=== PATIENT | female | born 1950 | race Caucasian/White ===

== ENCOUNTER → 2019-09-03 11:48 | Outpatient (CLI) | payer OTHER, SELFPAY ==
[2019-09-03 13:32] LABS: Hemoglobin A1C% w Est Avg Glu 7.7 % (4.0-6.0)
[2019-09-03 14:13] LABS: BUN Creatinine Ratio 20.6 (6-22); Blood Urea Nitrogen 13 mg/dL (7-17); Carbon Dioxide 24 mmol/L (22-32); Chloride 102 mmol/L (98-107); Estimated Glomerular Filt Rate > 60.0 mL/min (>60); Glucose 181 mg/dL (80-110); HEMOLYSIS < 15 (0-50); Potassium 4.5 mmol/L (3.4-5.1); Sodium 138 mmol/L (137-145)
[2019-09-03 15:02] LABS: Vitamin B12 276 pg/mL (239-931)
[2019-09-03 16:35] LABS: Vitamin D 25 Hydroxy (D3) 33.2 ng/mL (30.0-100.0)
[2019-09-03 16:59] LABS: Microalbumi Creatinin Ratio Ur 10.6 ug/mg CR (<30); Microalbumin Urine Random 1.2 mg/dL (0-1.6)
== END ==
PROVIDERS: Family Provider Internal Medicine; PCP Student in an Organized Health Care Education/Training Program; Referring Provider Student in an Organized Health Care Education/Training Program; Visit Provider Student in an Organized Health Care Education/Training Program
DX: E11.69 Type 2 diabetes mellitus with other specified complication (principal); E55.9 Vitamin D deficiency, unspecified; E66.9 Obesity, unspecified; G62.9 Polyneuropathy, unspecified
CPT/HCPCS: 36415; 80048; 82043; 82306; 82570; 82607; 83036

== ENCOUNTER → 2019-12-28 13:41 | Outpatient (CLI) | payer OTHER, SELFPAY ==
[2019-12-28 14:28] LABS: Hemoglobin A1C% w Est Avg Glu 7.1 % (4.0-6.0)
== END ==
PROVIDERS: Family Provider Internal Medicine; PCP Student in an Organized Health Care Education/Training Program; Referring Provider Student in an Organized Health Care Education/Training Program; Visit Provider Student in an Organized Health Care Education/Training Program
DX: Z13.820 Encounter for screening for osteoporosis (principal); M85.852 Other specified disorders of bone density and structure, left thigh; Z78.0 Asymptomatic menopausal state; E11.9 Type 2 diabetes mellitus without complications; Z91.89 Other specified personal risk factors, not elsewhere classified
CPT/HCPCS: 36415; 77080; 83036

== ENCOUNTER → 2020-04-06 15:15 | Outpatient (CLI) | payer OTHER, SELFPAY ==
[2020-04-06 16:21] LABS: Hemoglobin A1C% w Est Avg Glu 6.9 % (4.0-6.0)
== END ==
PROVIDERS: Family Provider Internal Medicine; PCP Student in an Organized Health Care Education/Training Program; Referring Provider Student in an Organized Health Care Education/Training Program; Visit Provider Student in an Organized Health Care Education/Training Program
DX: E11.9 Type 2 diabetes mellitus without complications (principal)
CPT/HCPCS: 36415; 83036

== ENCOUNTER → 2020-09-21 11:01 | Outpatient (CLI) | payer OTHER, SELFPAY ==
[2020-09-21 12:17] LABS: Hemoglobin A1C% w Est Avg Glu 7.1 % (4.0-6.0)
[2020-09-21 12:21] LABS: BUN Creatinine Ratio 31.7 (6-22); Blood Urea Nitrogen 19 mg/dL (7-17); Calcium 9.4 mg/dL (8.4-10.2); Carbon Dioxide 27 mmol/L (22-32); Chloride 102 mmol/L (98-107); Estimated Glomerular Filt Rate > 60.0 mL/min (>60); Glucose 141 mg/dL (80-110); HEMOLYSIS 16 (0-50); Potassium 4.2 mmol/L (3.4-5.1); Sodium 137 mmol/L (137-145)
[2020-09-21 16:21] LABS: Creatinine Urine Random 103.9 mg/dL
[2020-09-21 16:35] LABS: Microalbumin Urine Random < 0.6 mg/dL (0-1.6)
== END ==
PROVIDERS: Family Provider Internal Medicine; PCP Student in an Organized Health Care Education/Training Program; Referring Provider Student in an Organized Health Care Education/Training Program; Visit Provider Student in an Organized Health Care Education/Training Program
DX: E11.9 Type 2 diabetes mellitus without complications (principal); I10 Essential (primary) hypertension
CPT/HCPCS: 36415; 80048; 82043; 82570; 83036

== ENCOUNTER → 2021-04-03 15:40 | Outpatient (CLI) | payer OTHER, SELFPAY ==
[2021-04-03 16:19] LABS: Hemoglobin A1C% w Est Avg Glu 7.2 % (4.0-6.0)
== END ==
PROVIDERS: Family Provider Internal Medicine; PCP Student in an Organized Health Care Education/Training Program; Referring Provider Student in an Organized Health Care Education/Training Program; Visit Provider Student in an Organized Health Care Education/Training Program
DX: E11.9 Type 2 diabetes mellitus without complications (principal)
CPT/HCPCS: 36415; 83036

== ENCOUNTER → 2021-10-19 12:23 | Outpatient (CLI) | payer OTHER, SELFPAY ==
[2021-10-19 13:30] LABS: Hemoglobin A1C% w Est Avg Glu 8.5 % (4.0-6.0)
[2021-10-19 13:51] LABS: Blood Urea Nitrogen 16 mg/dL (7-17); Carbon Dioxide 27 mmol/L (22-32); Chloride 102 mmol/L (98-107); Cholesterol 160 mg/dL (140-199); Estimated Glomerular Filt Rate > 60 mL/min (>60); Glucose 214 mg/dL (80-110); HDL Cholesterol 47 mg/dL (40-60); LDL Cholesterol Calculated 47 mg/dL (<100); Potassium 5.1 mmol/L (3.4-5.1); Sodium 136 mmol/L (137-145); Triglycerides 332 mg/dL (35-150)
[2021-10-19 13:52] LABS: HEMOLYSIS 57 (0-50)
[2021-10-19 15:21] LABS: Creatinine Urine Random 126.1 mg/dL
[2021-10-19 15:28] LABS: Microalbumi Creatinin Ratio Ur 5.5 ug/mg CR (<30); Microalbumin Urine Random 0.7 mg/dL (0-1.6)
== END ==
PROVIDERS: Family Provider Internal Medicine; PCP Student in an Organized Health Care Education/Training Program; Referring Provider Student in an Organized Health Care Education/Training Program; Visit Provider Student in an Organized Health Care Education/Training Program
DX: E11.9 Type 2 diabetes mellitus without complications (principal); E11.69 Type 2 diabetes mellitus with other specified complication; E78.5 Hyperlipidemia, unspecified; I10 Essential (primary) hypertension
CPT/HCPCS: 36415; 80048; 80061; 82043; 82570; 83036

== ENCOUNTER → 2022-01-15 14:41 | Outpatient (CLI) | payer OTHER, SELFPAY ==
--- NOTE | 2022-01-15 14:42 | DI.MG.S_ITS ---
BILATERAL DIGITAL SCREENING MAMMOGRAM 3D/2D WITH CAD: 01/15/2022 CLINICAL: Routine screening. Comparison is made to exams dated: 08/11/2020 mammogram, 10/10/2017 mammogram, 10/10/2016 mammogram - [facility], and 09/22/2015 mammogram - [facility]. There are scattered fibroglandular elements in both breasts. Current study was also evaluated with a Computer Aided Detection (CAD) system. No significant masses, calcifications, or other findings are seen in either breast. There has been no significant interval change. IMPRESSION: NEGATIVE There is no mammographic evidence of malignancy. A 1 year screening mammogram is recommended. Based on the Tyrer Cuzick model (a risk assessment model) the patient's lifetime risk is 2.9% and her 10 year risk is 2.3%. According to the ACR, ACS, and NCCN guidelines, an annual breast MRI exam along with mammogram is recommended if the patient's lifetime risk is 20% or greater. This exam was interpreted at Station ID: [id number]. NOTE: For mammograms, a report in lay terms will be sent to the patient. Approximately 15% of breast malignancies will not be visualized mammographically. In the management of a palpable breast mass, a negative mammogram must not discourage biopsy of a clinically suspicious lesion. Electronically Signed By: Erlin [email or web address]:01/15/2022 17:24:20 letter sent: Normal Exam ACR BI-RADS Category 1: Negative [id number]
[2022-01-15 15:23] LABS: Hemoglobin A1C% w Est Avg Glu 8.2 % (4.0-6.0)
[2022-01-15 15:44] LABS: Triglycerides 360 mg/dL (35-150)
== END ==
PROVIDERS: Family Provider Internal Medicine; PCP Student in an Organized Health Care Education/Training Program; Referring Provider Student in an Organized Health Care Education/Training Program; Visit Provider Student in an Organized Health Care Education/Training Program
DX: Z12.31 Encounter for screening mammogram for malignant neoplasm of breast (principal); M85.852 Other specified disorders of bone density and structure, left thigh; Z78.0 Asymptomatic menopausal state; E11.69 Type 2 diabetes mellitus with other specified complication; Z13.820 Encounter for screening for osteoporosis; E78.5 Hyperlipidemia, unspecified; Z92.23 Personal history of estrogen therapy; Z90.710 Acquired absence of both cervix and uterus; Z85.828 Personal history of other malignant neoplasm of skin
CPT/HCPCS: 36415; 77063; 77067; 77080; 83036; 84478

== ENCOUNTER → 2022-09-19 09:46 | Outpatient (CLI) | payer OTHER, SELFPAY ==
[2022-09-19 10:29] LABS: Add Manual Diff / Slide Review NO; Basophils Absolute Auto 0 /uL (0-100); Basophils Percent Auto 0.5 % (0-2); Eosinophils Absolute Auto 300 /uL (0-450); Eosinophils Percent Auto 4.2 % (2-4); Hematocrit 39.9 % (36-46); Hemoglobin 13.2 g/dL (12.0-16.0); Lymphocytes Absolute Auto 2200 /uL (1100-4500); Lymphocytes Percent Auto 31.8 % (25-40); Mean Corpuscular HGB Conc 33.2 % (30-36); Mean Corpuscular Hemoglobin 29.3 PG (26-34); Mean Corpuscular Volume 88.3 fL (80-100); Monocytes Absolute Auto 500 /uL (0-900); Monocytes Percent Auto 7.6 % (3-14); Neutrophils Absolute Auto 3900 /uL (1500-7000); Neutrophils Percent Auto 55.9 % (50-75); Platelet Count 286 X10^3/uL (150-400); Red Blood Cell Count 4.51 X10^6/uL (4.0-5.2); Red Cell Distribution Width 14.3 % (11.6-14.8); White Blood Cell Count 6.9 X10^3/uL (4.5-11.0)
[2022-09-19 10:55] LABS: Appearance Urine UA SL CLOUDY; Bilirubin Urine UA NEGATIVE (NEGATIVE); Color Urine UA YELLOW; Glucose Urine UA NEGATIVE (Negative); Ketones Urine UA NEGATIVE (NEGATIVE); Leukocyte Esterase Urine UA TRACE (NEGATIVE); Nitrite Urine UA NEGATIVE (Negative); Occult Blood Urine UA NEGATIVE (Negative); Protein Urine UA NEGATIVE (Negative); Specific Gravity Urine UA 1.025 (1.000-1.035); Urobilinogen Urine UA 0.2 E.U./dL (0.2)
[2022-09-19 10:56] LABS: pH Urine UA 5.5 (4.5-8.0)
[2022-09-19 11:03] LABS: BUN Creatinine Ratio 21.9 (6-22); Blood Urea Nitrogen 16 mg/dL (7-17); Calcium 8.8 mg/dL (8.4-10.2); Carbon Dioxide 28 mmol/L (22-32); Chloride 102 mmol/L (98-107); Estimated Glomerular Filt Rate > 60 mL/min (>60); Glucose 100 mg/dL (80-110); HEMOLYSIS 44 (0-50); Potassium 4.1 mmol/L (3.4-5.1); Sodium 137 mmol/L (137-145)
[2022-09-19 11:15] LABS: Bacteria Urine None Seen; Culture Indicated Urine Specimen Cultured; RBC Urine None Seen (0-5/HPF); Squamous Epithelial Cell Urine 1-5 /HPF (0-5/HPF); WBC Urine 1-5/HPF (0-5/HPF)
== END ==
PROVIDERS: Family Provider Internal Medicine; PCP Student in an Organized Health Care Education/Training Program; Referring Provider Orthopaedic Surgery; Visit Provider Orthopaedic Surgery
DX: Z01.818 Encounter for other preprocedural examination (principal); R73.9 Hyperglycemia, unspecified; Z01.812 Encounter for preprocedural laboratory examination; N39.0 Urinary tract infection, site not specified
CPT/HCPCS: 36415; 80048; 81001; 83036; 85025; 87086; 93005

== ENCOUNTER → 2023-02-01 10:22 | Outpatient (CLI) | payer OTHER, SELFPAY ==
[2023-02-01 11:37] LABS: BUN Creatinine Ratio 37.3 (6-22); Blood Urea Nitrogen 22 mg/dL (7-17); Calcium 9.3 mg/dL (8.4-10.2); Carbon Dioxide 31 mmol/L (22-32); Chloride 98 mmol/L (98-107); Cholesterol 162 mg/dL (140-199); Estimated Glomerular Filt Rate > 60 mL/min (>60); Glucose 117 mg/dL (80-110); HDL Cholesterol 48 mg/dL (40-60); HEMOLYSIS < 15 (0-50); LDL Cholesterol Calculated 74 mg/dL (<100); Potassium 4.1 mmol/L (3.4-5.1); Sodium 137 mmol/L (137-145); Triglycerides 202 mg/dL (35-150)
[2023-02-01 11:43] LABS: Creatinine Urine Random 105.7 mg/dL
[2023-02-01 11:48] LABS: Microalbumi Creatinin Ratio Ur 5.6 ug/mg CR (<30); Microalbumin Urine Random 0.6 mg/dL (0-1.6)
[2023-02-01 12:32] LABS: Hep C Virus Ab w/Reflex Quant NEGATIVE s/c (NEGATIVE)
[2023-02-02 04:12] LABS: Labcorp Hemoglobin (Hb) A1c 6.4 % (4.8-5.6)
== END ==
PROVIDERS: Family Provider Internal Medicine; PCP Student in an Organized Health Care Education/Training Program; Referring Provider Student in an Organized Health Care Education/Training Program; Visit Provider Student in an Organized Health Care Education/Training Program
DX: E11.9 Type 2 diabetes mellitus without complications; E11.69 Type 2 diabetes mellitus with other specified complication; E78.5 Hyperlipidemia, unspecified; I10 Essential (primary) hypertension; Z11.59 Encounter for screening for other viral diseases
CPT/HCPCS: 36415; 80048; 80061; 82043; 82570; 83036; 86803

== ENCOUNTER → 2023-06-04 15:29 | Outpatient (CLI) | payer OTHER, SELFPAY ==
[2023-06-04 17:04] LABS: Hemoglobin A1C% w Est Avg Glu 6.9 % (4.0-6.0)
[2023-06-04 17:13] LABS: BUN Creatinine Ratio 37.7 (6-22); Blood Urea Nitrogen 23 mg/dL (7-17); Calcium 9.6 mg/dL (8.4-10.2); Carbon Dioxide 27 mmol/L (22-32); Chloride 101 mmol/L (98-107); Estimated Glomerular Filt Rate > 60 mL/min (>60); Glucose 108 mg/dL (80-110); Potassium 4.4 mmol/L (3.4-5.1); Sodium 137 mmol/L (137-145)
[2023-06-04 17:14] LABS: HEMOLYSIS 75 (0-50)
== END ==
PROVIDERS: Family Provider Internal Medicine; PCP Internal Medicine; Referring Provider Internal Medicine; Visit Provider Internal Medicine
DX: E11.69 Type 2 diabetes mellitus with other specified complication (principal); E78.5 Hyperlipidemia, unspecified; I10 Essential (primary) hypertension
CPT/HCPCS: 36415; 80048; 83036

== ENCOUNTER → 2023-07-03 13:50 | Outpatient (CLI) | payer OTHER, SELFPAY | LOC: CAR 13:59 | PROVIDERS: Family Provider Internal Medicine; PCP Internal Medicine; Referring Provider Internal Medicine; Visit Provider Internal Medicine | DX: I48.91 Unspecified atrial fibrillation (principal) | CPT/HCPCS: 93246 ==

== ENCOUNTER → 2023-12-24 14:57 | Outpatient (CLI) | payer OTHER, SELFPAY ==
--- NOTE | 2023-12-24 14:58 | DI.ECHO.S_ITS ---
[facility] +---------+ [facility] : : [address] : : [place] : : [id number] : : Phone: [phone] Echocardiogram Report + + :Name: SALOME MAYEN Study Date: 12/24/2023 Height: 63 in : :[facility] ReadingLocation: Weight: 220 lb : : Gender: Female BSA: 2.0 m2 : :: 1950 Age: 73 yrs BP: 155/82 mmHg: :Reason For Study: ATRIAL FIBRILLATION : :Ordering Physician: PERLA, : :STEFAN Performed By: Riki Rojas : :Referring: STEFAN DUNCAN : + + Interpretation Summary The patient was in sinus rhythm with heart rates between 63-73 bpm during the exam. The study quality was technically difficult. The ejection fraction is estimated to be 60-65%. Diastolic function could not be accurately assessed due to contradictory data. The right ventricle is normal in size and function. No obvious valvular abnormalities. Pulmonary artery pressures cannot be estimated because of the lack of a measurable TR jet velocity but the IVC suggests a CVP of around 3 mmHg. Procedure: A two-dimensional transthoracic echocardiogram with color flow and Doppler was performed. The study quality was technically difficult. There is no prior echocardiogram noted for this patient. The patient was in sinus rhythm with heart rates between 63-73 bpm during the exam. Left Ventricle: The left ventricle is normal in size. The ejection fraction is estimated to be 60-65%. Diastolic function could not be accurately assessed due to contradictory data. Right Ventricle: The right ventricle is normal in size and function. Atria: The left atrium grossly appears normal in size. Right atrial size is normal. The interatrial septum grossly appears intact with no obvious evidence for an atrial septal defect. Mitral Valve: The mitral valve is normal. There is no mitral valve stenosis. There is trace mitral regurgitation. Aortic Valve: The aortic valve is not well visualized. The aortic valve opens well. There is no aortic valve stenosis. No aortic regurgitation is present. Tricuspid Valve: The tricuspid valve is not well visualized, but is grossly normal. There is no tricuspid stenosis. No tricuspid regurgitation. Pulmonary artery pressures cannot be estimated because of the lack of a measurable TR jet velocity but the IVC suggests a CVP of around 3 mmHg. Pulmonic Valve: The pulmonic valve is not well visualized. There is no pulmonic valvular stenosis. There is no pulmonic valvular regurgitation. Great Vessels: The aortic root is normal size. The dimensions of the ascending aorta are normal. The IVC is of normal diameter and collapses greater than 50% with a sniff. This suggests a low right atrial pressure of 3 mm Hg. Pericardium/ Pleura There is no pericardial effusion. There is no pleural effusion. MMode/2D Measurements & Calculations LVIDd: 4.2 cm LVOT diam: 2.0 cm LVIDs: 3.1 cm Ao root diam: 3.0 cm FS: 25.5 % asc Aorta Diam: 3.2 cm IVSd: 1.3 cm Ao Arch Diam (Prox Trans): 2.8 cm LVPWd: 0.96 cm LV gu. diameter/BSA (cm/m^2): 2.1 LV sys. diameter/BSA (cm/m^2): 1.6 LA A4 area: 21.6 cm2 RA long axis: 3.9 cm LA length (vol): 5.5 cm RA area: 12.9 cm2 RA vol: 36.2 ml RA : 18.0 ml/m2 IVC diam: 1.7 cm RVD1 (basal): 3.6 cm RVD2 (mid): 2.7 cm TAPSE: 2.7 cm Doppler Measurements & Calculations Ao V2 max: 176.7 cm/sec LVOT Max Alan: 101.4 cm/sec Ao V2 mean: 127.0 cm/sec LV V1 max P.1 mmHg Ao max P.5 mmHg LV V1 VTI: 26.2 cm Ao mean P.1 mmHg GERMAINE(I,D): 2.1 cm2 Ao V2 VTI: 38.7 cm GERMAINE(V,D): 1.8 cm2 sev ratio: 0.68 GERMAINE indexed to BSA (cm^2/m^2): 1.1 MV E max alan: 75.1 cm/sec PA V2 max: 82.2 cm/sec MV A max alan: 83.9 cm/sec PA V2 mean: 65.1 cm/sec MV E/A: 0.89 PA mean P.8 mmHg Med Peak E' Alan: 6.7 cm/sec PA pr(Accel): 46.5 mmHg E/E' med: 11.2 Lat Peak E' Alan: 10.0 cm/sec E/E' lat: 7.5 E/e' average: 9.3 MV dec time: 0.20 sec SV(LVOT): 83.1 ml Reading Physician:04:02 PM
== END ==
LOC: ECHO 14:57
PROVIDERS: Family Provider Internal Medicine; PCP Internal Medicine; Referring Provider Internal Medicine Cardiovascular Disease; Visit Provider Internal Medicine Cardiovascular Disease
DX: I48.91 Unspecified atrial fibrillation (principal)
CPT/HCPCS: 93306

== ENCOUNTER → 2024-06-02 09:20 | Outpatient (CLI) | payer OTHER, SELFPAY ==
--- NOTE | 2024-06-02 10:04 | EKG_ITS ---
[facility] [id number] [place] [id number] Test Date: 2024-06-02 Pat Name: Cecelia De Santiago Department: Room: Gender: Female [employer]: MAYKEL : 1950 Requested By: Order Number: [id number] Reading MD: Matt Quintero MD Measurements Intervals [place] Rate: 67 P: 70 AR: 136 QRS: 11 QRSD: 88 T: 52 QT: 402 QTc: 424 Interpretive Statements Normal sinus rhythm Cannot rule out Anterior infarct , age undetermined Electronically Signed On 06-02-2024 11:48:36 PST by Matt Quintero MD
[2024-06-02 10:11] LABS: Add Manual Diff / Slide Review NO; Basophils Absolute Auto 100 /uL (0-100); Basophils Percent Auto 0.9 % (0-2); Eosinophils Absolute Auto 300 /uL (0-450); Eosinophils Percent Auto 3.6 % (2-4); Hematocrit 39.4 % (36-46); Hemoglobin 12.8 g/dL (12.0-16.0); Lymphocytes Absolute Auto 2000 /uL (1100-4500); Lymphocytes Percent Auto 24.9 % (25-40); Mean Corpuscular HGB Conc 32.4 % (30-36); Mean Corpuscular Hemoglobin 29.2 PG (26-34); Mean Corpuscular Volume 90.1 fL (80-100); Monocytes Absolute Auto 500 /uL (0-900); Monocytes Percent Auto 6.4 % (3-14); Neutrophils Absolute Auto 5000 /uL (1500-7000); Neutrophils Percent Auto 64.2 % (50-75); Platelet Count 307 X10^3/uL (150-400); Red Blood Cell Count 4.37 X10^6/uL (4.0-5.2); Red Cell Distribution Width 14.6 % (11.6-14.8); White Blood Cell Count 7.9 X10^3/uL (4.5-11.0)
[2024-06-02 10:16] LABS: Appearance Urine UA CLEAR; Bilirubin Urine UA NEGATIVE (NEGATIVE); Color Urine UA YELLOW; Glucose Urine UA NEGATIVE (Negative); Ketones Urine UA NEGATIVE (NEGATIVE); Leukocyte Esterase Urine UA TRACE (NEGATIVE); Nitrite Urine UA NEGATIVE (Negative); Occult Blood Urine UA 1+ (Negative); Protein Urine UA NEGATIVE (Negative); Specific Gravity Urine UA 1.025 (1.000-1.035); Urobilinogen Urine UA 0.2 E.U./dL (0.2)
[2024-06-02 10:17] LABS: Urine Volume 10mL (spun); pH Urine UA 5.5 (4.5-8.0)
[2024-06-02 10:19] LABS: Bacteria Urine None Seen; RBC Urine 1-5/HPF (0-5/HPF); Squamous Epithelial Cell Urine None Seen (0-5/HPF); WBC Urine 0-1/HPF (0-5/HPF)
[2024-06-02 10:20] LABS: Culture Indicated Urine Cult Not Indicated
[2024-06-02 10:23] LABS: Hemoglobin A1C% w Est Avg Glu 6.2 % (4.0-6.0)
[2024-06-02 10:48] LABS: Creatinine Urine Random 129.86 mg/dL
[2024-06-02 10:54] LABS: Microalbumin Urine Random 0.7 mg/dL (0-1.6)
[2024-06-02 12:21] LABS: Aspartate Aminotransferase 55 IU/L (14-36); BUN Creatinine Ratio 27.9 (6-22); Blood Urea Nitrogen 19 mg/dL (7-17); Calcium 9.2 mg/dL (8.4-10.2); Carbon Dioxide 30 mmol/L (22-32); Chloride 104 mmol/L (98-107); Cholesterol 146 mg/dL (140-199); Estimated Glomerular Filt Rate > 60 mL/min (>60); Glucose 158 mg/dL (80-110); HDL Cholesterol 48 mg/dL (40-60); HEMOLYSIS 30 (0-50); LDL Cholesterol Calculated 41 mg/dL (<100); Potassium 4.4 mmol/L (3.4-5.1); Sodium 137 mmol/L (137-145); Triglycerides 286 mg/dL (35-150)
== END ==
PROVIDERS: Family Provider Internal Medicine; PCP Internal Medicine; Referring Provider Orthopaedic Surgery; Visit Provider Orthopaedic Surgery
DX: Z01.818 Encounter for other preprocedural examination (principal); E78.5 Hyperlipidemia, unspecified; R79.9 Abnormal finding of blood chemistry, unspecified; Z01.812 Encounter for preprocedural laboratory examination; N39.0 Urinary tract infection, site not specified; E78.2 Mixed hyperlipidemia; I48.91 Unspecified atrial fibrillation; E11.65 Type 2 diabetes mellitus with hyperglycemia
CPT/HCPCS: 36415; 80048; 80061; 81001; 82043; 82570; 83036; 84450; 85025; 93005; 93010

== ENCOUNTER → 2024-08-24 15:33 | Outpatient (CLI) | payer OTHER, SELFPAY ==
[2024-08-24 16:44] LABS: Aspartate Aminotransferase 20 IU/L (14-36); BUN Creatinine Ratio 27.1 (6-22); Blood Urea Nitrogen 19 mg/dL (7-17); Calcium 9.2 mg/dL (8.4-10.2); Carbon Dioxide 27 mmol/L (22-32); Chloride 101 mmol/L (98-107); Estimated Glomerular Filt Rate > 60 mL/min (>60); Glucose 203 mg/dL (80-110); HEMOLYSIS < 15 (0-50); Potassium 3.9 mmol/L (3.4-5.1); Sodium 138 mmol/L (137-145)
== END ==
PROVIDERS: Family Provider Internal Medicine; PCP Internal Medicine; Referring Provider Internal Medicine; Visit Provider Internal Medicine
DX: E11.69 Type 2 diabetes mellitus with other specified complication (principal); E78.5 Hyperlipidemia, unspecified
CPT/HCPCS: 36415; 80048; 83036; 84450

== ENCOUNTER → 2024-12-23 11:34 | Outpatient (CLI) | payer OTHER, SELFPAY ==
[2024-12-23 12:12] LABS: Hemoglobin A1C% w Est Avg Glu 8.3 % (4.0-6.0)
[2024-12-23 12:46] LABS: Blood Urea Nitrogen 15 mg/dL (7-17); Calcium 9.4 mg/dL (8.4-10.2); Carbon Dioxide 25 mmol/L (22-32); Chloride 103 mmol/L (98-107); Estimated Glomerular Filt Rate > 60 mL/min (>60); Glucose 195 mg/dL (70-99); HEMOLYSIS 26 (0-50); Potassium 4.4 mmol/L (3.4-5.1); Sodium 137 mmol/L (137-145)
== END ==
PROVIDERS: Family Provider Internal Medicine; PCP Internal Medicine; Referring Provider Internal Medicine; Visit Provider Internal Medicine
DX: E11.69 Type 2 diabetes mellitus with other specified complication (principal); E78.5 Hyperlipidemia, unspecified
CPT/HCPCS: 36415; 80048; 83036

== ENCOUNTER → 2025-05-24 11:11 | Outpatient (CLI) | payer OTHER, SELFPAY ==
[2025-05-24 12:17] LABS: Blood Urea Nitrogen 18 mg/dL (7-17); Calcium 9.3 mg/dL (8.4-10.2); Carbon Dioxide 28 mmol/L (22-32); Chloride 101 mmol/L (98-107); Cholesterol 160 mg/dL (140-199); Estimated Glomerular Filt Rate > 60 mL/min (>60); Glucose 147 mg/dL (70-99); HDL Cholesterol 53 mg/dL (40-60); HEMOLYSIS 21 (0-50); Hemoglobin A1C% w Est Avg Glu 7.0 % (4.0-6.0); Potassium 4.6 mmol/L (3.4-5.1); Sodium 138 mmol/L (137-145); Triglycerides 176 mg/dL (35-150)
[2025-05-24 12:23] LABS: Microalbumi Creatinin Ratio Ur 16.0 ug/mg CR (<30)
== END ==
PROVIDERS: PCP Internal Medicine; Referring Provider Internal Medicine; Visit Provider Internal Medicine
DX: E11.69 Type 2 diabetes mellitus with other specified complication (principal); E78.5 Hyperlipidemia, unspecified; E78.2 Mixed hyperlipidemia
CPT/HCPCS: 36415; 80048; 80061; 82043; 82570; 83036